=== PATIENT | female | born 1960 | race Caucasian/White ===

== ENCOUNTER 2018-11-14 13:17 | Day surgery (SDC) | payer OTHER ==
[2018-11-14] MEDS ORDERED: ONDANSETRON 4 MG INJ IV (16:00)
[2018-11-14] MEDS ORDERED: PROPOFOL 40 ML (16:24)
[2018-11-14] MEDS ORDERED: LIDOCAINE 2% (SDV) 5 ML INJ (16:24)
== END 2018-11-14 18:47 | disposition home or self-care (01) ==
LOC: GIL 13:17
DX: Z12.11 Encounter for screening for malignant neoplasm of colon (principal); D12.5 Benign neoplasm of sigmoid colon; K64.8 Other hemorrhoids; I10 Essential (primary) hypertension; E11.9 Type 2 diabetes mellitus without complications; Z79.84 Long term (current) use of oral hypoglycemic drugs
CPT/HCPCS: 45385; 82962; 88305